=== PATIENT | female | born 1995 | race Caucasian/White ===

== ENCOUNTER 2024-02-17 14:46 | Outpatient (CLI) | payer BC, SELFPAY ==
--- OUTSIDE RECORDS SUMMARY | 2024-02-17 14:49 | XMS_ITS | Clinical Summary ---
Author Organization [facility] Address [place], [place] [address] Care Team Providers Care Valet Attendant Name Role Phone AshusaulAlejandra AMINA Primary Care Provider [phone] Allergies No known active allergies Medications Medication Sig Dispensed Refills Start Date End Date Status escitalopram oxalate (LEXAPRO) 20 mg tabletIndications:An xiety Take one tablet by mouth every day in the morning 90 Tablet 3 05/24/2023 Active clotrimazole (LOTRIMIN) 1 % creamIndications:Tin ea pedis of both feet Apply topically to affected area(s) two times daily. 45 g 10/18/2023 Active Apri tabletIndications:En counter for contraceptive management, unspecified type TAKE ONE TABLET BY MOUTH EVERY DAY 84 Tablet 1 11/01/2023 Active dextroamphetamine-am phetamine (Adderall XR) 30 mg Extended-Release capsuleIndications:A DD (attention deficit disorder) without hyperactivity Take 1 Capsule (30 mg) by mouth once daily. 30 Capsule 02/10/2024 03/11/2024 Active dextroamphetamine-am phetamine (Adderall XR) 30 mg Extended-Release capsuleIndications:A DD (attention deficit disorder) without hyperactivity Take 1 Capsule (30 mg) by mouth once daily. 30 Capsule 03/11/2024 Active dextroamphetamine-am phetamine (AdderalL) 10 mg tabletIndications:AD D (attention deficit disorder) without hyperactivity Take 1 Tablet (10 mg) by mouth 2 times daily at 7 AM and Noon. 60 Tablet 02/10/2024 03/11/2024 Active dextroamphetamine-am phetamine (AdderalL) 10 mg tabletIndications:AD D (attention deficit disorder) without hyperactivity Take 1 Tablet (10 mg) by mouth 2 times daily at 7 AM and Noon. 60 Tablet 03/11/2024 Active dextroamphetamine-am phetamine (Adderall XR) 30 mg Extended-Release capsuleIndications:A DD (attention deficit disorder) without hyperactivity Take 1 Capsule (30 mg) by mouth once daily. 30 Capsule 01/11/2024 02/10/2024 dextroamphetamine-am phetamine (AdderalL) 10 mg tabletIndications:AD D (attention deficit disorder) without hyperactivity Take 1 Tablet (10 mg) by mouth 2 times daily at 7 AM and Noon. 60 Tablet 01/11/2024 02/10/2024 Active Problems Problem Noted Date Diagnosed Date ADD (attention deficit disorder) without hyperac tivity 05/02/2023 Anxiety 09/23/2020 Attention deficit disorder 09/23/2020 Encounters Date Type Department Care Team Description 02/08/[address] [phone] Paula Elena MD Refill Request (Dextroamphetamine-am phetamine) 02/02/[address] [address] Paula Elena MD Refill Request (Dextroamphetamine-am phetamine, Dextroamphetamine-amp hetamine) 01/11/2024 10:55 AM CDT Telemedicine [address] [address] Paula Elena MD Telehealth (No vitals taken); Medication Management 01/04/[address] [address] Paula Elena MD Refill Request (Dextroamphetamine-am phetamine, Dextroamphetamine-amp hetamine) 12/09/[address] [address] Paula Elena MD Refill Request (Dextroamphetamine-am phetamine, Dextroamphetamine-amp hetamine) from Last 3 Months Immunizations Name Administration Dates Next Due AMB INFLUENZA, IIV4 (AGE=>6M OS) MDV (Flu Clinic Only) 08/24/2019 DTaP 02/20/2001, 7,05/30/1996,04/16,02/07/1996 HIB PRP-OMP (PedvaxHIB) 03/13/1997,05/30,04/16/1996,02/06 HIB PRP-T (ActHIB,Hiberix) 03/13/1997,,04/16/1996,02/06 HPV 9 (Gardasil 9) 05/11/2016,10/06/2015, 015 Hepatitis A (Adult) 02/03/2018,03/08/2017 Hepatitis B (Peds) 05/15/1997,02/07/1996, 996 Hepatitis B, Unspecified 05/15/1997,02/07/1996,0 1995 Human Papilloma Virus Vaccine 03/17/2015 Inactivated Polio Vaccine 02/20/2001,,05/30/1996,04/16,02/07/1996 Influenza, IIV4 07/27/2016 Influenza, IIV4 (=>6mos) MDV 07/27/2016,10/06/19 16 Influenza,LAIV4 Live Intrana keith (Flumist) 07/26/2014 MMR 02/20/2001,03/13/1997 Meningococcal Vaccine (Menactra) 07/26/2014 Tdap 02/03/2018,12/14/2007 Varicella Vaccine 12/30/2011,02/19/2000 Family History Relation Name Status Comments Father Alive Mother Alive Social History Tobacco Use Types Packs/Day Years Used Date Smoking Tobacco: Never Passive Smoke Exposure: Never Smokeless Tobacco: Never Tobacco Cessation:Counseling Given: Not Answered Alcohol Use Standard Drinks/Week Comments Yes 0 (1 standard drink = 0.6 oz pur e alcohol) occasional PHQ-2 Answer Date Recorded PHQ-2 TOTAL SCORE 1 05/24/2023 Social Connections Answer Date Recorded Frequency of Communication with Friends and Fami ly Not on file 09/09/2021 Financial Resource Strain Answer Date R ecorded Difficulty of Paying Living Expenses Not on file 09/09/2021 Difficulty of Paying Living Expenses Not on file 09/09/2021 Sex and Gender Information Value Date Recorded Sex Assigned at Not on file Gender Identity Not on file Sexual Orientation Not on file Obstetrics History Last Filed Vital Signs Vital Sign Reading Time Taken Comments Blood Pressure 104/74 11/03/2023 5:03 PM CONTRACTING SPECIALIST Pulse 99 11/03/2023 6:17 PM CONTRACTING SPECIALIST Temperature 36.7 ??C (98 ??F) 11/03/2023 5:03 PM CONTRACTING SPECIALIST Respiratory Rate 16 11/03/2023 5:03 PM CONTRACTING SPECIALIST Oxygen Saturation 100% 11/03/2023 6:17 PM CONTRACTING SPECIALIST Inhaled Oxygen Concentration - - Weight 70.3 kg (155 lb) 11/03/2023 5:03 PM CONTRACTING SPECIALIST Height 165.1 cm (5' 5) 11/03/2023 5:03 PM CONTRACTING SPECIALIST Body Mass Index 25.79 11/03/2023 5:03 PM CONTRACTING SPECIALIST Plan of Treatment Health Maintenance Due Date Last Done Comments HIV for age 15-65 11/27/2010 Hepatitis C screening for age 18-79 11/27/2013 Pap test for age 21-65 11/27/2016 COVID-19 vaccine series ( season) 2023 Influenza for age 9-49 05/20/2024 9, 07/27/2016, 07/27/2016, Additional history exists Depression screening for age 12+ 05/24/2024 05/24/2023, 05/24/2023, 01/05/2023, Additional history exists BMI (ht and wt on same day) for age 18+ 10/18/2024 10/18/2023, 06/13/2019, 01/22/2019, Additional history exists Tetanus booster 02/04/2028 02/03/2018, 12/14/2007 Tdap Completed 02/03/2018, 12/14/2007 Pneumococcal series for age 6-64 Aged Out No longer eligible based on patient's age to complete this topic Care Teams Valet Attendant Relationship Specialty Start Date End Date Alejandra Sy NP [address] [place] [id number] PCP - General Nurse Practitioner - Family 09/23/20
--- NOTE | 2024-02-17 15:00 | CRLHL7_ITS ---
For Patients: As a result of the Cures Act, medical imaging exams and procedure reports are released immediately into your electronic medical record. You may view this report before your referring provider. If you have questions, please contact your health care provider. HISTORY: Dating and viability COMPARISON: None available of this gestation. TECHNIQUE: Transvaginal ultrasound examination of the early was performed. FINDINGS: A single intrauterine gestational sac is seen with a pole. The crown-rump length measurement of 3.5 cm gives an estimated gestational age of 10 weeks 3 days with an estimated date of delivery of 09/11/2024. This correlates well with the LMP of 12/09/2023 which gives a clinical age of 10 weeks 0 days. Regular cardiac activity is seen at 159 BPM. There is a small anechoic region adjacent to the gestational sac, probably in the placenta, without color Doppler flow. This is a cyst of uncertain etiology. There is no sign of free fluid in the pelvis. There is a cyst in the left ovary measuring 3.6 by 2.0 x 2.9 centimeters, probably a corpus luteum cyst of . The right ovary is not visualized. IMPRESSION: Single intrauterine gestation with estimated age of 10 weeks 3 days. Regular cardiac activity is seen. Dictated by David Hong MD @ 02/19/2024 4:12:20 PM (Electronically Signed)
== END 2024-02-17 14:47 | disposition home or self-care (01) ==
LOC: US 14:48
PROVIDERS: PCP Nurse Practitioner Family; Visit Provider Registered Nurse
DX: Z34.91 Encounter for supervision of normal pregnancy, unspecified, first trimester (principal); Z3A.10 10 weeks gestation of pregnancy
CPT/HCPCS: 76817; 86592; 86703; 86704; 86706; 86762; 86787; 86803; 86850; 86900; 86901; 87086; 87340; 87491; 87591

== ENCOUNTER 2024-04-27 12:13 | Outpatient (CLI) | payer BC, SELFPAY ==
--- NOTE | 2024-04-27 12:15 | CRLHL7_ITS ---
For Patients: As a result of the Century Cures Act, medical imaging exams and procedure reports are released immediately into your electronic medical record. You may view this report before your referring provider. If you have questions, please contact your health care provider. INDICATION: Evaluate anatomy. COMPARISON: 02/17/2024 TECHNIQUE: Real time fay scale imaging of the fetus was performed as well as color Doppler analysis of the umbilical vessels. FINDINGS: Sonographic imaging demonstrates a single living intrauterine gestation. Fetus demonstrates a regular cardiac rate of 149 beats per minute. Fetus has a vertex position. The placenta lies right anterior without evidence of placenta previa. Adjuvant left placenta located 3.4 cm from the internal cervical os. Amniotic fluid volume appears normal. Single deepest vertical pocket: 5.4 cm. The cervix is closed and measures 3.9 cm in length. The composite ultrasound gestational age is calculated at 20 weeks 5 days with an estimated sonographic due date of 09/09/2024. The estimated weight is 387 grams which lies at the 91st %. The following biometric measurements were obtained: Biparietal diameter: 5.0 cm/21 weeks 0 days 87th% Head circumference: 18.4 cm/20 weeks 5 days 76th% Abdominal circumference: 16.5 cm/21 weeks 4 days 88th% Femur length: 3.3 cm/20 weeks 2 days 51st% The HC/AC ratio measures: 1.12 range (1.06-1.25) On anatomic survey, there is a normal appearance of the cerebral ventricles, cavum septi pellucidi, cisterna magna and cerebellum. The nose, lips, and facial profile appear normal. The cervical, thoracic and lumbar spine are well visualized and appear normal. There is a normal four-chamber heart view and the left and right ventricular outflow tracts appear normal. The diaphragm and stomach appear normal. The kidneys and bladder also appear normal. There is a normal three-vessel cord and cord insertion site. The four extremities appear normal. IMPRESSION: Normal OB ultrasound exam with concordance of clinical and sonographic dating. No intrinsic abnormalities noted on anatomic survey. Dictated by Juanito Camargo MD @ 04/30/2024 8:43:19 AM (Electronically Signed)
--- OUTSIDE RECORDS SUMMARY | 2024-04-27 12:15 | XMS_ITS | Clinical Summary ---
Author Organization [facility] Address [place], [place] [address] Care Team Providers Care Final Inspector Shuttle Name Role Phone KerrieLebronAlejandra AMINA Primary Care Provider Allergies No known active allergies Medications Medication Sig Dispensed Refills Start Date End Date Status escitalopram oxalate (LEXAPRO) 20 mg tabletIndications:A nxiety Take one tablet by mouth every day in the morning 90 Tablet 3 05/24/2023 Active clotrimazole (LOTRIMIN) 1 % creamIndications:Ti michelle pedis of both feet Apply topically to affected area(s) two times daily. 45 g 10/18/2023 Active Apri tabletIndications:E ncounter for contraceptive management, unspecified type TAKE ONE TABLET BY MOUTH EVERY DAY 84 Tablet 1 11/01/2023 Active dextroamphetamine-a mphetamine (Adderall XR) 25 mg Extended-Release capsuleIndications: ADD (attention deficit disorder) without hyperactivity Take 1 Capsule (25 mg) by mouth once daily. Okay to refill 04/03 as patient is going out of town 30 Capsule 04/03/2024 Active dextroamphetamine-a mphetamine (AdderalL) 10 mg tabletIndications:A DD (attention deficit disorder) without hyperactivity Take 1 Tablet (10 mg) by mouth 2 times daily at 7 AM and Noon. 60 Tablet 04/20/2024 Active dextroamphetamine-a mphetamine (Adderall XR) 25 mg Extended-Release capsuleIndications: ADD (attention deficit disorder) without hyperactivity Take 1 Capsule (25 mg) by mouth once daily. 30 Capsule 04/05/2024 4 Discontinue d(*Medicati on adjustment) dextroamphetamine-a mphetamine (AdderalL) 10 mg tabletIndications:A DD (attention deficit disorder) without hyperactivity Take 1 Tablet (10 mg) by mouth once daily. 30 Tablet 04/05/2024 4 Discontinue d(*Medicati on adjustment) dextroamphetamine-a mphetamine (AdderalL) 10 mg tabletIndications:A DD (attention deficit disorder) without hyperactivity Take 1 Tablet (10 mg) by mouth once daily. Okay to refill 04/03 as patient will be out of town 30 Tablet 04/03/2024 4 Discontinue d(*Medicati on adjustment) Active Problems Problem Noted Date Diagnosed Date ADD (attention deficit disorder) without hyperac tivity 05/02/2023 Anxiety 09/23/2020 Attention deficit disorder 09/23/2020 Estimated Date of Delivery Comme nts Yes 09/14/2024 Encounters Date Type Department Care Team Description 03/29/[address] [phone] Paula Elena MD Refill Request (Dextroamphetamine-a mphetamine, Dextroamphetamine-am phetamine) 03/19/2024 8:00 AM CDT Telemedicine [address] [phone] Paula Elena MD Telehealth (No vitals taken); Medication Management 03/03/[address] [phone] Paula Elena MD Refill Request (Dextroamphetamine-a mphetamine, Dextroamphetamine-am phetamine) 02/20/2024 Lab Requisition [facility] [phone] Angella King NP 02/17/2024 Orders Only [facility] Scanner 1 scan: (1-Ord) [facility], OB TRANSVAGINAL, 02/17/2024 02/08/[address] [place] [phone] Paula Elena MD Refill Request (Dextroamphetamine-a mphetamine) 02/02/[address] [place] [address] Paula Elena MD Refill Request (Dextroamphetamine-a mphetamine, Dextroamphetamine-am phetamine) from Last 3 Months Immunizations Name Administration [...] Paying Living Expenses Not on file 09/09/2021 Estimated Date of Delivery Comme nts Yes 09/14/2024 Sex and Gender Information Value Date Recorded Sex Assigned at Not on file Gender Identity Not on file Sexual Orientation Not on file Obstetrics History Para Term AB IAB SAB Ectopic Multiple Livin g Live Births 1 Date Outcome GA Total Labor Labor/2nd/3rd Weight Sex Type Anes PTL Maryann A1 A5 Name Clin Current Last Filed Vital Signs Vital Sign Reading Time Taken Comments Blood Pressure 104/74 11/03/2023 5:03 PM DIRECTOR ELECTRONICS Pulse 99 11/03/2023 6:17 PM DIRECTOR ELECTRONICS Temperature 36.7 ??C (98 ??F) 11/03/2023 5:03 PM DIRECTOR ELECTRONICS Respiratory Rate 16 11/03/2023 5:03 PM DIRECTOR ELECTRONICS Oxygen Saturation 100% 11/03/2023 6:17 PM DIRECTOR ELECTRONICS Inhaled Oxygen Concentration - - Weight 70.3 kg (155 lb) 11/03/2023 5:03 PM DIRECTOR ELECTRONICS Height 165.1 cm (5' 5) 11/03/2023 5:03 PM DIRECTOR ELECTRONICS Body Mass Index 25.79 11/03/2023 5:03 PM DIRECTOR ELECTRONICS Plan of Treatment Upcoming Encounters Date Type Department Care Team (Late st Contact Info) Description 05/04/2024 8:25 AM CDT Telemedicine [facility] [address] [place] [address] Paula Elena MD [address] [place] [address] Health Maintenance Due Date Last Done Comments HIV for age 15-65 11/27/2010 Hepatitis C screening for age 18-79 11/27/2013 COVID-19 vaccine series (2022-24 season) 2023 Influenza for age 9-49 05/20/2024 9, 07/27/2016, 07/27/2016, Additional history exists Depression screening for age 12+ 05/24/2024 05/24/2023, 05/24/2023, 01/05/2023, Additional history exists BMI (ht and wt on same day) for age 18+ 10/18/2024 10/18/2023, 06/13/2019, 01/22/2019, Additional history exists Pap test for age 21-65 02/16/2027 02/17/2024, 2023 Tetanus booster 02/04/2028 02/03/2018, 12/14/2007 Tdap Completed 02/03/2018, 12/14/2007 Pneumococcal series for age 6-64 Aged Out No longer eligible based on patient's age to complete this topic Procedures Procedure Name Priority Date/Time Associated Diagnosis Comments LAB TRACKING EVENT Routine 02/17/2024 4: 30 PM CDT FUR MIXER THIN PREP PAP SCREEN IMAGED Routine 02/17/2024 4:30 PM CDT HPV THIN PREP Routine 02/17/2024 4:30 PM CDT SCAN-ULTRASOUND REPORT 02/17/2024 12:00 AM CDT from Last 3 Months Results * LAB TRACKING EVENT (02/17/2024 4:30 PM CDT) Other (Other) Client Collect / Unknown 02/17/2024 4:30 PM CDT 02/20/2024 3:39 PM CDT Angella King NP LAB BILL ONLY [facility] [address] [place] [address], [place] * FUR MIXER THIN PREP PAP SCREEN IMAGED (02/17/2024 4:30 PM CDT) Case Report Gynecologic Cytology Report ? Case: [id number] ? Authorizing Provider: ??Angella King, SALES PROFESSIONAL BILINGUAL ?? Collected: ? 02/17/2024 1630 ? Ordering Location: ? [facility] ?Received: ?02/21/2024 0900 ? First Screen: ?Susan Ross ? Specimen: ?FUR MIXER ThinPrep Vial Screening, Cervical ? 02/29/2024 9:21 AM [facility] INTERPRETATION/ RESULT NEGATIVE FOR INTRAEPITHELIAL LESION OR MALIGNANCY (NIL) (none) 02/29/2024 9:21 AM [facility] IMEN ADEQUACY Satisfactory for evaluation No endocervical component seen in a patient 02/29/2024 9:21 AM CDT [facility] [employer] [facility]-C ENTRAL LABORATORY HPV REQUEST HPV and PAP 02/29/2024 9:21 AM [facility] Date of LMP 12/09/2023 02/29/2024 [facility] [employer] [facility]AL [facility] Last Pap Result First Pap/Unknown 9:21 AM CDT [facility] Abnormal Pap or [place] Bx in last 5 years No 02/29/2024 9:21 AM CDT [facility] Menstrual Status 02/29/2024 9:21 AM CDT [facility] [place] Bx Done Today No 02/29/2024 9:21 AM CDT [facility] Additional Information 02/29/2024 9:21 AM CDT [facility] Comment: Interpreted at [facility] - [address], [place] [address] Automated Review Successful 02/29/2024 9:[address] [facility] Comment:Specimen processed s uccessfully by automated fur sewer device, ThinPrep Imaging System, [employer] ANCILLARY TESTING FUR MIXER HPV Ordered, Please see separate report 02/29/2024 9:[address] [facility] Note The pap test is a screening technique, not a diagnostic procedure. It is used primarily to screen for squamous cancers and precursor lesions. Published studies have shown that it is subject to both false negative and false positive results. The pap test should not be used as the sole means to diagnose or exclude pre-malignant and malignant lesions. 02/29/2024 9:21 AM CDT [facility] Other (Cervical) 02/17/2024 4:30 PM CDT 02/21/2024 9:00 AM CDT Angella King NP PATHOLOGY/CYTOLOG Y [facility] [address] [place] [address], * HPV HIGH RISK (02/17/2024 4:30 PM CDT) TYPE 16 Negative Negative 02/23/2024 2:18 PM CDT [facility] LABORAT[facility] TYPE 18 Negative Negative 02/23/2024 2:18 PM CDT [facility] TRAL LABORATORY OTHER HIGH RISK TYPES Negative Negative 02/23/2024 2:18 PM CDT [facility] Other (Cervical) 02/17/2024 4:30 PM CDT 02/21/2024 9:00 AM CDT Narrative [facility] - 02/23/2024 2:18 PM CDT HPV types 16, 18, 31, 33, 35, 39, 45, 51, 52, 56, 58, 59, 66 and 68 DNA were undetectable or below the pre-set threshold. Methodology: Jennifer Yadira 4800 HPV Test Angella King NP MICROBIOLOGY [facility] [address] [place] [address], * SCAN-ULTRASOUND REPORT (02/17/2024 12:00 AM CDT) Anatomical Region Laterality Modality Other Scanner OTHER from Last 3 Months Care Teams Final Inspector Shuttle Relationship Specialty Start Date End Date Alejandra Sy NP [address] [place] [id number] PCP - General Nurse Practitioner - Family 09/23/20
== END 2024-04-27 12:14 | disposition home or self-care (01) ==
LOC: US 12:13
PROVIDERS: PCP Nurse Practitioner Family; Visit Provider Obstetrics & Gynecology
DX: Z34.92 Encounter for supervision of normal pregnancy, unspecified, second trimester (principal); Z3A.20 20 weeks gestation of pregnancy
CPT/HCPCS: 76805

== ENCOUNTER 2024-06-27 13:29 | Outpatient (CLI) | payer BC, SELFPAY ==
--- OUTSIDE RECORDS SUMMARY | 2024-06-29 08:41 | XMS_ITS | Clinical Summary ---
Author Organization [employer] [facility] Address [place], [place] [address] Care Team Providers Care Team Otr Truck Driver Name Role Phone Paula Elena MD Primary Care Provi diony Allergies No known active allergies Medications Medication Sig Dispensed Refills Start Date End Date Status clotrimazole (LOTRIMIN) 1 % creamIndications:T inea pedis of both feet Apply topically to affected area(s) two times daily. 45 g 4 Active Apri tabletIndications: Encounter for contraceptive management, unspecified type TAKE ONE TABLET BY MOUTH EVERY DAY 84 Tablet 1 4 Active dextroamphetamine- amphetamine (Adderall XR) 25 mg Extended-Release capsuleIndications :ADD (attention deficit disorder) without hyperactivity Take 1 Capsule (25 mg) by mouth once daily. Okay to refill 04/03 as patient is going out of town 30 Capsule 4 Active dextroamphetamine- amphetamine (Adderall XR) 25 mg Extended-Release capsuleIndications :ADD (attention deficit disorder) without hyperactivity Take 1 Capsule (25 mg) by mouth once daily. 30 Capsule 4 Active Prvugbir-Fx-Szi-Fe -FA tab tablet Take 1 Tablet by mouth once daily. Active dextroamphetamine- amphetamine (ADDERALL) 10 mg tabletIndications: ADD (attention deficit disorder) without hyperactivity TAKE ONE TABLET BY MOUTH TWICE A DAY AT 7A.M. AND NOON 60 Tablet 4 Active dextroamphetamine- amphetamine (AdderalL) 10 mg tabletIndications: ADD (attention deficit disorder) without hyperactivity Take 1 Tablet (10 mg) by mouth 2 times daily at 7 AM and Noon. 60 Tablet 4 07/14/20 24 Active dextroamphetamine- amphetamine (AdderalL) 10 mg tabletIndications: ADD (attention deficit disorder) without hyperactivity Take 1 Tablet (10 mg) by mouth 2 times daily at 7 AM and Noon. 60 Tablet 4 08/13/20 24 Active dextroamphetamine- amphetamine (AdderalL) 10 mg tabletIndications: ADD (attention deficit disorder) without hyperactivity Take 1 Tablet (10 mg) by mouth 2 times daily at 7 AM and Noon. 30 Tablet 4 Active escitalopram oxalate (LEXAPRO) 20 mg tabletIndications: Anxiety TAKE ONE TABLET BY MOUTH EVERY DAY IN MORNING 90 Tablet 3 4 Active dextroamphetamine- amphetamine (Adderall XR) 25 mg Extended-Release capsuleIndications :ADD (attention deficit disorder) without hyperactivity Take 1 Capsule (25 mg) by mouth once daily. 30 Capsule 4 Active escitalopram oxalate (LEXAPRO) 20 mg tabletIndications: Anxiety Take one tablet by mouth every day in the morning 90 Tablet 3 3 06/04/20 24 Discontinued dextroamphetamine- amphetamine (Adderall XR) 25 mg Extended-Release capsuleIndications :ADD (attention deficit disorder) without hyperactivity Take 1 Capsule (25 mg) by mouth once daily. 30 Capsule 4 06/02/20 24 dextroamphetamine- amphetamine (Adderall XR) 25 mg Extended-Release capsuleIndications :ADD (attention deficit disorder) without hyperactivity Take 1 Capsule (25 mg) by mouth once daily. 30 Capsule 4 06/25/20 24 Discontinued(*Me dication adjustment) escitalopram oxalate (LEXAPRO) 20 mg tabletIndications: Anxiety TAKE ONE TABLET BY MOUTH EVERY DAY IN MORNING 90 Tablet 1 4 06/25/20 24 Discontinued(Reo rder (E-cancel not sent)) escitalopram oxalate (LEXAPRO) 20 mg tabletIndications: Anxiety TAKE ONE TABLET BY MOUTH EVERY DAY IN MORNING 90 Tablet 1 4 06/25/20 24 Discontinued(Reo rder (E-cancel not sent)) Active Problems Problem Noted Date Diagnosed Date ADD (attention deficit disorder) without hyperac tivity 05/02/2023 Anxiety 09/23/2020 Attention deficit disorder 09/23/2020 Estimated Date of Delivery Comme nts Yes 09/14/2024 Encounters Date Type Department Care Team Description 06/25/[address] [address] Paula Elena MD Refill Request 06/19/[address] [address] Paula Elena MD Refill Request (Escitalopram Oxalate) 06/14/[address] [address] Paula Elena MD Refill Request (ARMEN) 06/10/[address] [address] Paula Elena MD Refill Request (Dextroamphetamine-am phetamine) 05/30/[address] [address] Alejandra Sy NP Refill Request (Escitalopram Oxalate) 05/28/[address] [address] Paula Elena MD Refill Request (Dextroamphetamine-am phetamine) 05/20/[address] [address] Paula Elena MD Refill Request (Dextroamphetamine-am phetamine) 05/14/[address] [address] Paula Elena MD Refill Request (Dextroamphetamine-am phetamine) 05/04/2024 8:25 AM CDT Telemedicine [address] [place] [address] Paula Elena MD Telehealth (No vitals taken); Medication Management 04/30/[address] [place] [address] Paula Elena MD Refill Request (Dextroamphetamine-am phetamine) 04/27/2024 Orders Only [facility] Scanner 1 scan: (1-Ord) [facility], OB >14 WEEKS FETUS, 04/27/2024 03/29/[address] [place] [address] Paula Elena MD Refill Request (Dextroamphetamine-am phetamine, [...] Not Answered Alcohol Use Standard Drinks/Week Comments Not Currently 0 (1 standard drink = 0.6 oz [...] Comments Blood Pressure 104/74 11/03/2023 5:03 PM CLAY TEMPERER Pulse 99 11/03/2023 6:17 PM CLAY TEMPERER Temperature 36.7 ??C (98 ??F) 11/03/2023 5:03 PM CLAY TEMPERER Respiratory Rate 16 11/03/2023 5:03 PM CLAY TEMPERER Oxygen Saturation 100% 11/03/2023 6:17 PM CLAY TEMPERER Inhaled Oxygen Concentration - - Weight 70.3 kg (155 lb) 11/03/2023 5:03 PM CLAY TEMPERER Height 165.1 cm (5' 5) 11/03/2023 5:03 PM CLAY TEMPERER Body Mass Index 25.79 11/03/2023 5:03 PM CLAY TEMPERER Plan of Treatment Health Maintenance Due Date Last Done Comments HIV for age 15-65 11/27/2010 Hepatitis C screening for age 18-79 11/27/2013 COVID-19 vaccine series ( season) 2024 Influenza for age 9-49 05/20/2024 9, 07/27/2016, 07/27/2016, Additional history exists Depression screening for age 12+ 05/24/2024 05/24/2023, 05/24/2023, 01/05/2023, Additional history exists RSV vaccine for adults or (1 - Risk 1-dose series) 07/20/2024 BMI (ht and wt on same day) for age 18+ 10/18/2024 10/18/2023, 06/13/2019, 01/22/2019, Additional history exists Pap test for age 21-65 02/16/2027 02/17/2024, 2023 Tetanus booster 02/04/2028 02/03/2018, 12/14/2007 Tdap Completed 02/03/2018, 12/14/2007 Pneumococcal series for age 6-64 Aged Out No longer eligible based on patient's age to complete this topic Procedures Procedure Name Priority Date/Time Associated Diagnosis Comments SCAN-ULTRASOUND REPORT 04/27/2024 12:00 AM CDT HPV HIGH RISK Routine 02/17/2024 4:30 PM CDT from Last 3 Months or Most Recently Relevant to Health Maintenance Results * SCAN-ULTRASOUND REPORT (04/27/2024 12:00 AM CDT) Anatomical Region Laterality Modality Other Scanner OTHER * HPV HIGH RISK (02/17/2024 4:30 PM CDT) TYPE 16 Negative Negative 02/23/2024 2:18 PM CDT [facility] TYPE 18 Negative Negative 02/23/2024 2:18 PM CDT [facility] OTHER HIGH RISK TYPES Negative Negative 02/23/2024 2:18 PM CDT [facility] Other (Cervical) 02/17/2024 4:30 PM CDT 02/21/2024 9:00 AM CDT Narrative [facility] - 02/23/2024 2:18 PM CDT HPV types 16, 18, 31, 33, 35, 39, 45, 51, 52, 56, 58, 59, 66 and 68 DNA were undetectable or below the pre-set threshold. Methodology: Jennifer Yadira 4800 HPV Test Angella King BALER OPERATOR [facility]CROBIOLOGY [facility] [address] [place] [address], from Last 3 Months or Most Recently Relevant to Health Maintenance Care Teams Team Otr Truck Driver Relationship Specialty Start Date End Date Paula Elena MD [address] [place] [address] PCP - General Family Practice 06/21/24
== END 2024-06-27 13:30 | disposition home or self-care (01) ==
LOC: NFLDREF 06-29 08:39
PROVIDERS: PCP Nurse Practitioner Family; Referring Provider Nurse Practitioner Family; Visit Provider Obstetrics & Gynecology
DX: Z34.03 Encounter for supervision of normal first pregnancy, third trimester (principal)
CPT/HCPCS: 86592

== ENCOUNTER 2024-07-30 10:35 | Outpatient (CLI) | payer BC, SELFPAY ==
--- OUTSIDE RECORDS SUMMARY | 2024-08-02 07:16 | XMS_ITS | Clinical Summary ---
Author Organization [employer] [facility] Address [place], [place] [address] Care Team Providers Care Certified Coding Specialist Name Role Phone Paula Elena MD Primary Care Provi diony Allergies No known active allergies Medications Medication Sig Dispensed Refills Start Date End Date Status clotrimazole (LOTRIMIN) 1 % creamIndications:Tin ea pedis of both feet Apply topically to affected area(s) two times daily. 45 g 10/18/2023 Active Apri tabletIndications:En counter for contraceptive management, unspecified type TAKE ONE TABLET BY MOUTH EVERY DAY 84 Tablet 1 11/01/2023 Active dextroamphetamine-am phetamine (Adderall XR) 25 mg Extended-Release capsuleIndications:A DD (attention deficit disorder) without hyperactivity Take 1 Capsule (25 mg) by mouth once daily. Okay to refill 04/03 as patient is going out of town 30 Capsule 04/03/2024 Active dextroamphetamine-am phetamine (Adderall XR) 25 mg Extended-Release capsuleIndications:A DD (attention deficit disorder) without hyperactivity Take 1 Capsule (25 mg) by mouth once daily. 30 Capsule 07/02/2024 Active Wsfczrmd-Ae-Mzw-Fe-F A tab tablet Take 1 Tablet by mouth once daily. Active dextroamphetamine-am phetamine (ADDERALL) 10 mg tabletIndications:AD D (attention deficit disorder) without hyperactivity TAKE ONE TABLET BY MOUTH TWICE A DAY AT 7A.M. AND NOON 60 Tablet 05/15/2024 Active dextroamphetamine-am phetamine (AdderalL) 10 mg tabletIndications:AD D (attention deficit disorder) without hyperactivity Take 1 Tablet (10 mg) by mouth 2 times daily at 7 AM and Noon. 60 Tablet 07/14/2024 08/13/2024 Active dextroamphetamine-am phetamine (AdderalL) 10 mg tabletIndications:AD D (attention deficit disorder) without hyperactivity Take 1 Tablet (10 mg) by mouth 2 times daily at 7 AM and Noon. 30 Tablet 08/13/2024 Active escitalopram oxalate (LEXAPRO) 20 mg tabletIndications:An xiety TAKE ONE TABLET BY MOUTH EVERY DAY IN MORNING 90 Tablet 3 06/25/2024 Active dextroamphetamine-am phetamine (Adderall XR) 25 mg Extended-Release capsuleIndications:A DD (attention deficit disorder) without hyperactivity Take 1 Capsule (25 mg) by mouth once daily. 30 Capsule 06/25/2024 Active dextroamphetamine-am phetamine (Adderall XR) 25 mg Extended-Release capsuleIndications:A DD (attention deficit disorder) without hyperactivity Take 1 Capsule (25 mg) by mouth once daily. 30 Capsule 07/23/2024 08/22/2024 Active dextroamphetamine-am phetamine (Adderall XR) 25 mg Extended-Release capsuleIndications:A DD (attention deficit disorder) without hyperactivity Take 1 Capsule (25 mg) by mouth once daily. 30 Capsule 08/22/2024 09/21/2024 Active dextroamphetamine-am phetamine (Adderall XR) 25 mg Extended-Release capsuleIndications:A DD (attention deficit disorder) without hyperactivity Take 1 Capsule (25 mg) by mouth once daily. 30 Capsule 09/21/2024 Active dextroamphetamine-am phetamine (AdderalL) 10 mg tabletIndications:AD D (attention deficit disorder) without hyperactivity Take 1 Tablet (10 mg) by mouth 2 times daily at 7 AM and Noon. 60 Tablet 06/14/2024 07/14/2024 Active Problems Problem Noted Date Diagnosed Date ADD (attention deficit disorder) without hyperac tivity 05/02/2023 Anxiety 09/23/2020 Attention deficit disorder 09/23/2020 Estimated Date of Delivery Comme nts Yes 09/14/2024 Encounters Date Type Department Care Team Description 07/19/[address] [place] [address] Paula Elena MD Refill Request (Dextroamphetamine-am phetamine) 07/04/[address] [place] [address] Paula Elena MD Refill Request (Dextroamphetamine-am phetamine) 06/25/[address] [place] [address] Paula Elena MD Refill Request 06/19/[address] [place] [address] Paula Elena MD Refill Request (Escitalopram Oxalate) 06/14/[address] [place] [address] Paula Elena MD Refill Request (ARMEN) 06/10/[address] [place] [address] Paula Elena MD Refill Request (Dextroamphetamine-am phetamine) 05/30/[address] [place] [address] Alejandra Sy NP Refill Request (Escitalopram Oxalate) 05/28/[address] [place] [address] Paula Elena MD Refill Request (Dextroamphetamine-am phetamine) 05/20/[address] [place] [address] Paula Elena MD Refill Request (Dextroamphetamine-am phetamine) 05/14/[address] [place] [address] Paula Elena MD Refill Request (Dextroamphetamine-am phetamine) 05/04/2024 8:25 AM CDT Telemedicine [address] [place] [address] Paula Elena MD Telehealth (No vitals taken); Medication Management from Last 3 Months Immunizations Name Administration [...] Comments Blood Pressure 104/74 11/03/2023 5:03 PM PREPRESS SUPERVISOR Pulse 99 11/03/2023 6:17 PM PREPRESS SUPERVISOR Temperature 36.7 ??C (98 ??F) 11/03/2023 5:03 PM PREPRESS SUPERVISOR Respiratory Rate 16 11/03/2023 5:03 PM PREPRESS SUPERVISOR Oxygen Saturation 100% 11/03/2023 6:17 PM PREPRESS SUPERVISOR Inhaled Oxygen Concentration - - Weight 70.3 kg (155 lb) 11/03/2023 5:03 PM PREPRESS SUPERVISOR Height 165.1 cm (5' 5) 11/03/2023 5:03 PM PREPRESS SUPERVISOR Body Mass Index 25.79 11/03/2023 5:03 PM PREPRESS SUPERVISOR Plan of Treatment Health Maintenance Due Date [...] Procedure Name Priority Date/Time Associated Diagnosis Comments HPV HIGH RISK Routine 02/17/2024 4:30 PM CDT from Last 3 Months or Most Recently Relevant to Health Maintenance Results * HPV HIGH RISK (02/17/2024 4:30 PM CDT) TYPE 16 Negative Negative 02/23/2024 2:18 PM CDT [facility] TYPE 18 Negative Negative 02/23/2024 2:18 PM CDT [facility] OTHER HIGH RISK TYPES Negative Negative 02/23/2024 2:18 PM CDT [facility] Other (Cervical) 02/17/2024 4:30 PM CDT 02/21/2024 9:00 AM CDT Narrative [facility] - 02/23/2024 2:18 PM CDT HPV types 16, 18, 31, 33, 35, 39, 45, 51, 52, 56, 58, 59, 66 and 68 DNA were undetectable or below the pre-set threshold. Methodology: [employer] Yadira 4800 HPV Test Angella King NP [facility]CRO[facility]OLOGY [facility] [address] [place] [address], from Last 3 Months or Most Recently Relevant to Health Maintenance Care Teams Certified Coding Specialist Relationship Specialty Start Date End Date Paula Elena MD [address] [place] [address] PCP - General Family Practice 06/21/24
== END 2024-07-30 10:36 | disposition home or self-care (01) ==
LOC: NFLDREF 08-02 07:14
PROVIDERS: PCP Nurse Practitioner Family; Referring Provider Nurse Practitioner Family; Visit Provider Obstetrics & Gynecology
DX: O99.013 Anemia complicating pregnancy, third trimester (principal); Z3A.33 33 weeks gestation of pregnancy
CPT/HCPCS: 82728

== ENCOUNTER 2024-08-07 11:23 | Outpatient (RCR) | payer BC, SELFPAY ==
--- NOTE | 2024-07-31 11:18 | PC.NURSE ---
Diagnosis: Iron Deficiency Anemia in
--- NOTE | 2024-07-31 11:44 | URNOTE ---
Request received for authorization for Iron Sucrose (Venofer) ([id number]). Prior authorization is not required per BS website.
[2024-08-07 11:39] VITALS: BP 121/83; PULSE 96; RESP 16; TEMP 36.6; O2SAT 96
[2024-08-07] MEDS: IRON SUCROSE COMPLEX 200 MG in 0.9 % SODIUM CHLORIDE 100 ml 300 MG IVPB (11:54)
[2024-08-07] MEDS: SODIUM CHLORIDE 0.9 % (FLUSH) 10 ML SYRINGE IVF (11:57)
[2024-08-07 12:23] VITALS: BP 134/83; PULSE 91; RESP 16; O2SAT 98
== END 2025-02-03 23:59 | disposition home or self-care (01) ==
LOC: CCIC 11:23
PROVIDERS: PCP Family Medicine; Visit Provider Clinical Nurse Specialist
DX: O99.013 Anemia complicating pregnancy, third trimester (principal); D50.9 Iron deficiency anemia, unspecified
CPT/HCPCS: 96365; J1756

== ENCOUNTER 2024-08-13 13:54 | Outpatient (CLI) | payer BC, SELFPAY ==
--- NOTE | 2024-08-13 14:00 | CRLHL7_ITS ---
For Patients: As a result of the Century Cures Act, medical imaging exams and procedure reports are released immediately into your electronic medical record. You may view this report before your referring provider. If you have questions, please contact your health care provider. INDICATION: Third trimester scan, evaluate growth. COMPARISON: April 27, 2024. February 17, 2024. TECHNIQUE: Real time fay scale imaging of the fetus was performed. FINDINGS: Sonographic imaging demonstrates a single living intrauterine gestation. Fetus demonstrates a regular cardiac rate of 138 beats per minute. Fetus has a vertex orientation and longitudinal lie with spine to the maternal left side. The placenta lies anteriorly without evidence of placenta previa. There is a placental Encinas measuring 2.4 x 2.4 x 1.8 cm. Amniotic fluid volume appears normal and there is a single deepest pocket measurement of 6.7. Biometric indices: Biparietal diameter 9.4 cm, 38 weeks 3 days, greater than the 97th percentile. Head circumference 33.9 cm, 39 weeks 0 days, 93rd percentile. Abdominal circumference 34.1 cm, 38 weeks 0 days, greater than the 97th percentile. Femur length 6.8 cm, 34 weeks 6 days, 27th percentile. The biometric indices all lie within normal range. Appropriate growth and maturation when compared to the 2 prior obstetrical ultrasounds. The composite ultrasound gestational age is calculated at 37 weeks 4 days. The estimated weight is 3198 which lies at the 93rd percentile. The HC/AC ratio measures 1.0 range (0.91-1.05). IMPRESSION: Single living intrauterine in vertex presentation with a Heart rate of 138 beats per minute, normal amniotic fluid, and a composite calculated ultrasound age of 37 weeks 4 days with a sonographic due date of August 30, 2024. Dictated by Stephane Bull MD @ 08/14/2024 10:32:13 AM (Electronically Signed)
--- OUTSIDE RECORDS SUMMARY | 2024-08-13 14:11 | XMS_ITS | Clinical Summary ---
Author Organization [facility] Address [place], [place] [address] Care Team Providers Care Railroad Firer/Fireman Name Role Phone Paula Elena MD Primary Care Provi diony Allergies No known active allergies Medications Medication Sig Dispensed Refills Start Date End Date Status clotrimazole (LOTRIMIN) 1 % creamIndications:Ti michelle pedis [...] town 30 Capsule 04/03/2024 Active dextroamphetamine-a mphetamine (Adderall XR) 25 mg Extended-Release capsuleIndications: ADD (attention deficit disorder) without hyperactivity Take 1 Capsule (25 mg) by mouth once daily. 30 Capsule 07/02/2024 Active Yohmmoba-Hg-Tyy-Fe- FA tab tablet Take 1 Tablet by mouth once daily. Active dextroamphetamine-a mphetamine (ADDERALL) 10 mg tabletIndications:A DD (attention deficit disorder) without hyperactivity TAKE ONE TABLET BY MOUTH TWICE A DAY AT 7A.M. AND NOON 60 Tablet 05/15/2024 Active dextroamphetamine-a mphetamine (AdderalL) 10 mg tabletIndications:A DD (attention deficit disorder) without hyperactivity Take 1 Tablet (10 mg) by mouth 2 times daily at 7 AM and Noon. 60 Tablet 07/14/2024 4 Active escitalopram oxalate (LEXAPRO) 20 mg tabletIndications:A nxiety TAKE ONE TABLET BY MOUTH EVERY DAY IN MORNING 90 Tablet 3 06/25/2024 Active dextroamphetamine-a mphetamine (Adderall XR) 25 mg Extended-Release capsuleIndications: ADD (attention deficit disorder) without hyperactivity Take 1 Capsule (25 mg) by mouth once daily. 30 Capsule 06/25/2024 Active dextroamphetamine-a mphetamine (Adderall XR) 25 mg Extended-Release capsuleIndications: ADD (attention deficit disorder) without hyperactivity Take 1 Capsule (25 mg) by mouth once daily. 30 Capsule 07/23/2024 4 Active dextroamphetamine-a mphetamine (Adderall XR) 25 mg Extended-Release capsuleIndications: ADD (attention deficit disorder) without hyperactivity Take 1 Capsule (25 mg) by mouth once daily. 30 Capsule 08/22/2024 5 Active dextroamphetamine-a mphetamine (Adderall XR) 25 mg Extended-Release capsuleIndications: ADD (attention deficit disorder) without hyperactivity Take 1 Capsule (25 mg) by mouth once daily. 30 Capsule 09/21/2024 Active dextroamphetamine-a mphetamine (AdderalL) 10 mg tabletIndications:A DD (attention deficit disorder) without hyperactivity Take 1 Tablet (10 mg) by mouth 2 times daily at 7 AM and Noon. 60 Tablet 08/22/2024 Active dextroamphetamine-a mphetamine (AdderalL) 10 mg tabletIndications:A DD (attention deficit disorder) without hyperactivity Take 1 Tablet (10 mg) by mouth 2 times daily at 7 AM and Noon. 60 Tablet 06/14/2024 4 dextroamphetamine-a mphetamine (AdderalL) 10 mg tabletIndications:A DD (attention deficit disorder) without hyperactivity Take 1 Tablet (10 mg) by mouth 2 times daily at 7 AM and Noon. 30 Tablet 08/13/2024 4 Discontinued (*Medication adjustment) dextroamphetamine-a mphetamine (AdderalL) 10 mg tabletIndications:A DD (attention deficit disorder) without hyperactivity Take 1 Tablet (10 mg) by mouth 2 times daily at 7 AM and Noon. 30 Tablet 08/13/2024 4 Discontinued (*Medication adjustment) dextroamphetamine-a mphetamine (AdderalL) 10 mg tabletIndications:A DD (attention deficit disorder) without hyperactivity Take 1 Tablet (10 mg) by mouth 2 times daily at 7 AM and Noon. 30 Tablet 08/06/2024 4 Discontinued (*Medication adjustment) Active Problems Problem Noted Date Diagnosed Date ADD (attention deficit disorder) without hyperac tivity 05/02/2023 Anxiety 09/23/2020 Attention deficit disorder 09/23/2020 Estimated Date of Delivery Comme nts Yes 09/14/2024 Encounters Date Type Department Care Team Description 08/08/[address] [address] Paula Elena MD Refill Request (Dextroamphetamine-amph etamine) 08/06/[address] [phone] Paula Elena MD Refill Request (Dextroamphetamine-amph etamine, Dextroamphetamine-amphe tamine) 07/19/[address] [phone] Paula Elena MD Refill Request (Dextroamphetamine-amph etamine) 07/04/[address] [phone] Paula Elena MD Refill Request (Dextroamphetamine-amph etamine) 06/25/[address] [address] Paula Elena MD Refill Request 06/19/[address] [place] [address] Paula Elena MD Refill Request (Escitalopram Oxalate) 06/14/[address] [place] [address] Paula Elena MD Refill Request (ARMEN) 06/10/[address] [place] [address] Paula Elena MD Refill Request (Dextroamphetamine-amph etamine) 05/30/[address] [place] [address] Alejandra Sy NP Refill Request (Escitalopram Oxalate) 05/28/[address] [place] [address] Paula Elena MD Refill Request (Dextroamphetamine-amph etamine) 05/20/[address] [place] [address] Paula Elena MD Refill Request (Dextroamphetamine-amph etamine) 05/14/[address] [place] [address] Paula Elena MD Refill Request (Dextroamphetamine-amph etamine) from Last 3 Months Immunizations Name Administration [...] Comments Blood Pressure 104/74 11/03/2023 5:03 PM CRESTER Pulse 99 11/03/2023 6:17 PM CRESTER Temperature 36.7 C (98 F) 11/03/2023 5:03 PM CRESTER Respiratory Rate 16 11/03/2023 5:03 PM CRESTER Oxygen Saturation 100% 11/03/2023 6:17 PM CRESTER Inhaled Oxygen Concentration - - Weight 70.3 kg (155 lb) 11/03/2023 5:03 PM CRESTER Height 165.1 cm (5' 5) 11/03/2023 5:03 PM CRESTER Body Mass Index 25.79 11/03/2023 5:03 PM CRESTER Plan of Treatment Health Maintenance Due Date [...] Negative 02/23/2024 2:18 PM CDT [facility] TYPE 18 Negative Negative 02/23/2024 2:18 PM CDT [facility] OTHER HIGH RISK TYPES Negative Negative 02/23/2024 2:18 PM CDT [facility] TRA [facility] Other (Cervical) 02/17/2024 4:30 PM CDT 02/21/2024 9:00 AM CDT Narrative [facility] - 02/23/2024 2:18 PM CDT HPV types 16, 18, 31, 33, 35, 39, 45, 51, 52, 56, 58, 59, 66 and 68 DNA were undetectable or below the pre-set threshold. Methodology: Jennifer Yadira 4800 HPV Test Angella King STERILISATION TECHNICIAN MICROBIOLOGY [facility] [address] [place] [id number], from Last 3 Months or Most Recently Relevant to Health Maintenance Care Teams Railroad Firer/Fireman Relationship Specialty Start Date End Date Paula Elena MD [address] [place] [id number] PCP - General Family Practice 06/21/24
== END 2024-08-13 13:55 | disposition home or self-care (01) ==
LOC: US 13:55
PROVIDERS: PCP Family Medicine; Visit Provider Obstetrics & Gynecology
DX: O36.63X0 Maternal care for excessive fetal growth, third trimester, not applicable or unspecified (principal); Z3A.37 37 weeks gestation of pregnancy
CPT/HCPCS: 76816

== ENCOUNTER 2024-08-20 13:18 | Outpatient (CLI) | payer BC, SELFPAY ==
[2024-08-20] VITALS (12 sets, daily range): BP systolic 123–146; BP diastolic 74–88; PULSE 83–98; RESP 16; TEMP 36.9; O2SAT 98
--- OUTSIDE RECORDS SUMMARY | 2024-08-20 13:21 | XMS_ITS | Clinical Summary ---
Author Organization [employer] [facility] [employer] [facility] Address [place], [place] [address] Care Team Providers Care Video System Repairer Name Role Phone Paula Elena MD Primary [...] mouth once daily. 30 Capsule 4 Active Hjwdrnfr-Cd-Bgi-Fe -FA tab tablet Take 1 Tablet by mouth once daily. Active dextroamphetamine- amphetamine (ADDERALL) 10 mg tabletIndications: ADD (attention deficit disorder) without hyperactivity TAKE ONE TABLET BY MOUTH TWICE A DAY AT 7A.M. AND NOON 60 Tablet 4 Active escitalopram oxalate (LEXAPRO) 20 mg tabletIndications: Anxiety TAKE ONE TABLET BY MOUTH EVERY DAY IN MORNING 90 Tablet 3 4 Active dextroamphetamine- amphetamine (Adderall XR) 25 mg Extended-Release capsuleIndications :ADD (attention deficit disorder) without hyperactivity Take 1 Capsule (25 mg) by mouth once daily. 30 Capsule 4 Active dextroamphetamine- amphetamine (Adderall XR) 25 mg Extended-Release capsuleIndications :ADD (attention deficit disorder) without hyperactivity Take 1 Capsule (25 mg) by mouth once daily. 30 Capsule 4 09/21/19 25 Active dextroamphetamine- amphetamine (Adderall XR) 25 mg Extended-Release capsuleIndications :ADD (attention deficit disorder) without hyperactivity Take 1 Capsule (25 mg) by mouth once daily. 30 Capsule 5 Active dextroamphetamine- amphetamine (AdderalL) 10 mg tabletIndications: ADD (attention deficit disorder) without hyperactivity Take 1 Tablet (10 mg) by mouth 2 times daily at 7 AM and Noon. 60 Tablet 4 Active dextroamphetamine- amphetamine (ADDERALL XR) 25 mg Extended-Release capsuleIndications :ADD (attention deficit disorder) without hyperactivity Take 1 Capsule (25 mg) by mouth once daily. 30 Capsule 4 Active dextroamphetamine- amphetamine (AdderalL) 10 mg tabletIndications: ADD (attention deficit disorder) without hyperactivity Take 1 Tablet (10 mg) by mouth 2 times daily at 7 AM and Noon. 60 Tablet 4 08/13/20 24 dextroamphetamine- amphetamine (AdderalL) 10 mg tabletIndications: ADD (attention deficit disorder) without hyperactivity Take 1 Tablet (10 mg) by mouth 2 times daily at 7 AM and Noon. 30 Tablet 4 08/06/20 24 Discontinued(*Me dication adjustment) dextroamphetamine- amphetamine (Adderall XR) 25 mg Extended-Release capsuleIndications :ADD (attention deficit disorder) without hyperactivity Take 1 Capsule (25 mg) by mouth once daily. 30 Capsule 4 08/14/20 24 Discontinued dextroamphetamine- amphetamine (AdderalL) 10 mg tabletIndications: ADD (attention deficit disorder) without hyperactivity Take 1 Tablet (10 mg) by mouth 2 times daily at 7 AM and Noon. 30 Tablet 4 08/06/20 24 Discontinued(*Me dication adjustment) dextroamphetamine- amphetamine (AdderalL) 10 mg tabletIndications: ADD (attention deficit disorder) without hyperactivity Take 1 Tablet (10 mg) by mouth 2 times daily at 7 AM and Noon. 30 Tablet 4 08/07/20 24 Discontinued(*Me dication adjustment) Active Problems Problem Noted Date Diagnosed Date ADD (attention deficit disorder) without hyperac tivity 05/02/2023 Anxiety 09/23/2020 Attention deficit disorder 09/23/2020 Estimated Date of Delivery Comme nts Yes 09/14/2024 Encounters Date Type Department Care Team Description 08/20/[address] [phone] Paula Elena MD Refill Request (Dextroamphetamine-amph etamine) 08/15/[address] [address] Paula Elena MD Refill Request (Dextroamphetamine-amph etamine) 08/08/[address] [address] Paula Elena MD Refill Request (Dextroamphetamine-amph etamine) 08/06/[address] [phone] Paula Elena MD Refill Request (Dextroamphetamine-amph etamine, Dextroamphetamine-amphe tamine) 07/19/[address] [phone] Paula Elena MD Refill Request (Dextroamphetamine-amph etamine) 07/04/[address] [phone] Paula Elena MD Refill Request (Dextroamphetamine-amph etamine) 06/25/[address] [place] [address] Paula Elena MD Refill Request 06/19/[address] [place] [address] Paula Elena MD Refill Request (Escitalopram Oxalate) 06/14/[address] [place] [address] Paula Elena MD Refill Request (ARMEN) 06/10/[address] [place] [address] Paula Elena MD Refill Request (Dextroamphetamine-amph etamine) 05/30/[address] [place] [address] Alejandra Sy NP Refill Request (Escitalopram Oxalate) 05/28/[address] [place] [address] Paula Elena MD Refill Request (Dextroamphetamine-amph etamine) [...] Comments Blood Pressure 104/74 11/03/2023 5:03 PM PLASTIC TOP ASSEMBLER Pulse 99 11/03/2023 6:17 PM PLASTIC TOP ASSEMBLER Temperature 36.7 C (98 F) 11/03/2023 5:03 PM PLASTIC TOP ASSEMBLER Respiratory Rate 16 11/03/2023 5:03 PM PLASTIC TOP ASSEMBLER Oxygen Saturation 100% 11/03/2023 6:17 PM PLASTIC TOP ASSEMBLER Inhaled Oxygen Concentration - - Weight 70.3 kg (155 lb) 11/03/2023 5:03 PM PLASTIC TOP ASSEMBLER Height 165.1 cm (5' 5) 11/03/2023 5:03 PM PLASTIC TOP ASSEMBLER Body Mass Index 25.79 11/03/2023 5:03 PM PLASTIC TOP ASSEMBLER Plan of Treatment Upcoming Encounters Date Type Department Care Team (Late st Contact Info) Description 09/06/2024 1:50 PM PLASTIC TOP ASSEMBLER Telemedicine [facility] [address] [place] [address] Alejandra Sy, AMINA [address] [place] [address] Health Maintenance Due Date Last Done Comments [...] 16 Negative Negative 02/23/2024 2:18 PM CDT [facility] TRAL LABORATORY TYPE 18 Negative Negative 02/23/2024 2:18 PM CDT [facility] OTHER HIGH RISK TYPES Negative Negative 02/23/2024 2:18 PM CDT [facility] Other (Cervical) 02/17/2024 4:30 PM CDT 02/21/2024 9:00 AM CDT Narrative [facility] - 02/23/2024 2:18 PM CDT HPV types 16, 18, 31, 33, 35, 39, 45, 51, 52, 56, 58, 59, 66 and 68 DNA were undetectable or below the pre-set threshold. Methodology: Jennifer Yadira 4800 HPV Test Angella King INTERNAL AUDIT SENIOR MANAGER MICROBIOLOGY [facility] [address] [place] [address], from Last 3 Months or Most Recently Relevant to Health Maintenance Care Teams Video System Repairer Relationship Specialty Start Date End Date Paula Elena MD [address] [place] [id number] PCP - General Family Practice 06/21/24
[2024-08-20 13:54] LABS: Hematocrit 33.7 % (33.0-51.0); Hemoglobin* 10.4 gm/dL (12.0-16.0); Mean Corpuscular HGB Conc 31 gm/dL (32-36); Mean Corpuscular Hemoglobin 27 pg (26-34); Mean Corpuscular Volume 87 fL (80-100); Platelet Count* 256 K/uL (140-440); Red Blood Count 3.87 m/uL (4.00-5.20); White Blood Count* 13.92 K/uL (4.50-11.00)
[2024-08-20 13:56] LABS: Slide Review Reflex No
[2024-08-20 14:11] LABS: Alanine Aminotransferase* 11 U/L (4-35); Aspartate Amino Transferase* 21 U/L (12-35); Blood Urea Nitrogen* 10 mg/dL (5-24); Creatinine* 0.5 mg/dL (0.5-1.5); Estimated Glomerular Filt Rate 131 ml/min
[2024-08-20 14:12] LABS: Total Protein Urine 11 mg/dL
[2024-08-20 14:14] LABS: Creatinine Urine 51.8 mg/dL; Protein Creatinine Ratio Urine 0.21 (0-0.19)
--- NOTE | 2024-08-20 16:49 | P.OBLDTN_ITS ---
OB - Triage/Final Diagnosis Visit Information Date Seen: 08/20/24 Date of evaluation: 08/20/24 Narrative: The patient is a 28 year old 1 para 0 at 36 3/7 weeks gestation by LMP, who presents from clinic for serial blood pressure monitoring and labs. She been seen in the [facility] today for routine visit. Her blood pressure was noted to be mildly elevated at 138/92. At the time of her last visit, her initial blood pressure was 138/94. Both measurements were done using an appropriate sized blood pressure cuff. The patient has noticed an increase in swelling in her fingers and hands and some puffiness in her face. Her fetus is active. She denies headaches, visual changes, or right upper quadrant pain. OB Problem list: 1. Anxiety. Well managed on Lexapro 20 mg daily. PHQ 10, LEISA 7. Patient states this is her baseline. 2. ADHD. Taking Adderall x5 years. Referral placed to [facility], patient declined to schedule. * Level one FAS ultrasound scheduled in [place]. Patient counseled that in general, Adderall use in has not been found to increase rate of malformations. * Patient's primary provider is working to gradually decrease her dosage of Adderall. Decreased to 25 mg daily (reported on 04/13/24) 3. Back pain and hip pain * Referral to [facility] in [place], [place] 4. Anemia - hemoglobin 9.7 on 07/30/2024, ferritin 7.8 * IV infusion therapy: 08/07/2024 5.Fundal height large for dates * Growth ultrasound at 35-36 weeks gestation: EFW 93% * Interested in 39wk IOL 6. Gestational HTN dx'd on 08/20 - BP elevated on 08/13, upsized cuff and normalized - BP elevated on 08/20 with appropriately sized cuff > triage - BP elevated during triage monitoring (140s/90s). Recommend IOL @37 weeks. Evaluation Laboratory results: Laboratory Tests 08/20/24 08/20/24 Range/Units 13:43 13:38 WBC 13.92 H (4.50-11.00) K/uL RBC 3.87 L (4.00-5.20) m/uL Hgb 10.4 L (12.0-16.0) gm/dL Hct 33.7 (33.0-51.0) % MCV 87 (80-100) fL MCH 27 (26-34) pg MCHC 31 L (32-36) gm/dL Plt Count 256 (140-440) K/uL BUN 10 (5-24) mg/dL Creatinine 0.5 (0.5-1.5) mg/dL Estimated GFR 131 ml/min AST 21 (12-35) U/L ALT 11 (4-35) U/L Urine Creatinine 51.8 mg/dL Protein/Creatinin Ratio 0.21 H (0-0.19) Urine Total Protein 11 mg/dL Vital signs: Vital Signs - 24 hr 08/20/24 13:34 08/20/24 13:50 08/20/24 14:05 Temperature 98.5 F Pulse Rate 96 96 93 Respiratory Rate 16 Blood Pressure 123/85 146/82 H 138/75 Pulse Oximetry 98 08/20/24 14:20 08/20/24 14:34 08/20/24 14:50 Temperature Pulse Rate 97 98 92 Respiratory Rate Blood Pressure 131/85 137/88 140/84 H Pulse Oximetry 08/20/24 15:05 08/20/24 15:19 08/20/24 15:35 Temperature Pulse Rate 89 91 92 Respiratory Rate Blood Pressure 143/74 H 141/77 H 133/80 Pulse Oximetry 08/20/24 15:49 08/20/24 16:04 08/20/24 16:19 Temperature Pulse Rate 92 83 93 Respiratory Rate Blood Pressure 135/84 132/82 140/86 H Pulse Oximetry Comments: General appearance: Alert, cooperative white female in no acute distress Abdomen: Soft, gravid, nontender Extremities: Trace to 1+ edema of the hands and fingers, trace edema of the lower extremities to the ankles Labs: Platelets 256, hemoglobin 10.4, BUN 10, creatinine 0.5, AST 21, ALT 11, urine P/C 0.21. Fetus (Single) Heart Rate Baseline: 120 Computer Applications Developer Variability: Moderate (6-25) Monitor Accelerations: Present Monitor Decelerations: None Final Diagnosis (1) Gestational hypertension: Status: Acute Problem details: Induction of labor recommended at 37 weeks gestation, with cervical ripening the evening prior, method TBD on admit
--- NOTE | 2024-08-20 17:00 | PC.OBNST ---
NST Note NST Note Start: 08/20/24 13:25 Freq: ONCE Status: Active Protocol: Document 08/20/24 16:40 CUDDYH (Rec: 08/20/24 17:00 CUDDY [id number]) NST Note 1 Para (# of births) 0 EDC 09/14/24 Gestational Age In Weeks & Days 36 Weeks & 3 Days Patient Presented with Complaint(s) of Other Other Complaints blood pressure monitoring Reactive Yes Appropriate for Gestational Age Yes RN Sheila Cusujit Date 08/20/24 Reactive Yes Appropriate for Gestational Age Yes RN Ant Case RN Date 08/20/24 OB NST charge Yes Complete NST Note via Write Note Yes The provider's electronic signature indicates the NST is reactive/appropriate for gestational age. *Note to provider: If an addendum is required, open the patient's chart and click on the note under the Nurse/Allied Health tab.
== END 2024-08-20 16:40 | disposition home or self-care (01) ==
LOC: OB OUT 13:21 → OB 13:44
PROVIDERS: Obstetrics & Gynecology; PCP Family Medicine; Visit Provider Obstetrics & Gynecology
DX: O13.3 Gestational [pregnancy-induced] hypertension without significant proteinuria, third trimester (principal); Z3A.36 36 weeks gestation of pregnancy
CPT/HCPCS: 36415; 59025; 82565; 82570; 84156; 84450; 84460; 84520; 85027; G0463

== ENCOUNTER 2024-08-20 13:24 | Outpatient (CLI) | payer BC, SELFPAY ==
[2024-08-21 22:53] LABS: Strep B DNA Probe Negative (Negative)
[2024-08-21 23:33] LABS: Strep B Susceptibility Needed? No
== END 2024-08-20 13:25 | disposition home or self-care (01) ==
LOC: NFLDREF 13:25
PROVIDERS: PCP Family Medicine; Visit Provider Obstetrics & Gynecology
DX: Z34.93 Encounter for supervision of normal pregnancy, unspecified, third trimester (principal); Z3A.36 36 weeks gestation of pregnancy
CPT/HCPCS: 87081; 87653

== ENCOUNTER 2024-08-23 15:57 | Inpatient (IN) | payer BC, SELFPAY ==
[2024-08-23] VITALS (8 sets, daily range): BP systolic 114–138; BP diastolic 62–89; PULSE 76–114; RESP 16–18; TEMP 36.6–36.7; O2SAT 98; BMI 31.8
--- OUTSIDE RECORDS SUMMARY | 2024-08-23 16:02 | XMS_ITS | Clinical Summary ---
Author Organization [employer] [facility] [employer] [facility] Address [place], [place] [address] Care Team Providers Care Avionics System Engineer Name Role Phone Paula Elena MD Primary [...] mouth once daily. 30 Capsule 4 Active Atdltoit-Oj-Myo-Fe -FA tab tablet Take 1 Tablet by mouth once daily. Active escitalopram oxalate (LEXAPRO) 20 mg tabletIndications: [...] daily. 30 Capsule 4 Active dextroamphetamine- amphetamine (ADDERALL) 10 mg tabletIndications: ADD (attention deficit disorder) without hyperactivity TAKE ONE TABLET BY MOUTH TWICE A DAY AT 7A.M. AND NOON 60 Tablet 4 08/21/20 24 Discontinued(*Me d complete/Regimen complete/Level of care change) dextroamphetamine- amphetamine (AdderalL) 10 mg tabletIndications: ADD [...] Encounters Date Type Department Care Team Description 08/22/[address] [phone] Paula Elena MD 08/20/[address] [phone] Paula Elena MD Refill Request (Dextroamphetamine-amph etamine) 08/15/[address] [address] Paula Elena MD Refill Request (Dextroamphetamine-amph etamine) 08/08/[address] [address] Paula Elena MD Refill Request (Dextroamphetamine-amph etamine) 08/06/[address] [address] Paula Elena MD Refill Request (Dextroamphetamine-amph etamine, Dextroamphetamine-amphe tamine) 07/19/[address] [address] Paula Elena MD Refill Request (Dextroamphetamine-amph etamine) 07/04/[address] [place] [address] aPula Elena MD Refill Request (Dextroamphetamine-amph etamine) 06/25/[address] [place] [address] Paula Elena MD Refill Request 06/19/[address] [place] [address] Paula Elena MD Refill Request (Escitalopram Oxalate) 06/14/[address] [place] [address] Paula Elena MD Refill Request (ARMEN) 06/10/[address] [place] [address] Paula Elena MD Refill Request (Dextroamphetamine-amph etamine) 05/30/[address] [place] [address] Alejandra Sy NP Refill Request (Escitalopram Oxalate) 05/28/[address] [place] [address] Paula Elena MD Refill Request (Dextroamphetamine-amph etamine) [...] Comments Blood Pressure 104/74 11/03/2023 5:03 PM HORSE RACER Pulse 99 11/03/2023 6:17 PM HORSE RACER Temperature 36.7 C (98 F) 11/03/2023 5:03 PM HORSE RACER Respiratory Rate 16 11/03/2023 5:03 PM HORSE RACER Oxygen Saturation 100% 11/03/2023 6:17 PM HORSE RACER Inhaled Oxygen Concentration - - Weight 70.3 kg (155 lb) 11/03/2023 5:03 PM HORSE RACER Height 165.1 cm (5' 5) 11/03/2023 5:03 PM HORSE RACER Body Mass Index 25.79 11/03/2023 5:03 PM HORSE RACER Plan of Treatment Upcoming Encounters Date Type Department Care Team (Late st Contact Info) Description 09/06/2024 1:50 PM HORSE RACER Telemedicine [facility] [address] [place] [address] Alejandra Sy, AMINA [address] [place] [address] Health Maintenance Due Date Last Done Comments [...] 16 Negative Negative 02/23/2024 2:18 PM CDT [facility] TRAL LABORATORY TYPE 18 Negative Negative 02/23/2024 2:18 PM CDT [facility] TRAL LABORATORY OTHER HIGH RISK TYPES Negative Negative 02/23/2024 2:18 PM CDT [facility] Other (Cervical) 02/17/2024 4:30 PM CDT 02/21/2024 9:00 AM CDT Narrative [facility] - 02/23/2024 2:18 PM CDT HPV types 16, 18, 31, 33, 35, 39, 45, 51, 52, 56, 58, 59, 66 and 68 DNA were undetectable or below the pre-set threshold. Methodology: Jennifer Yadira 4800 HPV Test Angella King OIL HOUSE ATTENDANT MICROBIOLOGY [facility] [address] [place] [id number], from Last 3 Months or Most Recently Relevant to Health Maintenance Care Teams Avionics System Engineer Relationship Specialty Start Date End Date Paula Elena MD [address] [place], [place] [address]KAVITA Corral [address] PCP - General Family Practice 06/21/24
--- NOTE | 2024-08-23 16:38 | W.PM.LDBA ---
Subjective History of Present Illness Time Seen by Provider: 17:25 Date Seen: 08/23/24 Narrative: Patient is being admitted to Labor and Delivery for an induction of labor due to gestational hypertension. She is a 28 year old at 36 and 6/7 weeks gestation. She was diagnosed with gestational hypertension on 08/20/2024. Her has been complicated by anemia and she underwent an iron infusion on 08/05/2024. She also has ADHD and has been taking Adderall during her . Preeclampsia labs were drawn on admission today. She is GBS negative and blood type is B positive. I will be checking her cervix to determine cervical ripening method. Verbal consent obtained to place a Cook catheter. The patient's past medical, surgical, family and social histories were reviewed in her electronic medical record. Specific Issues/Plans G 1 P 0 Partner: Congregational. Baby: Boy! 1. Anxiety. Well managed on Lexapro 20 mg daily. PHQ 10, LEISA 7. Patient states this is her baseline. 2. ADHD. Taking Adderall x5 years. Referral placed to [facility], patient declined to schedule. Level one FAS ultrasound scheduled in [place]. Patient counseled that in general, Adderall use in has not been found to increase rate of malformations. Patient's primary provider is working to gradually decrease her dosage of Adderall. Decreased to 25 mg daily (reported on 04/13/24) 3. Back pain and hip pain Referral to [facility] in [place], [place] 4. Anemia - hemoglobin 9.7 on 07/30/2024, ferritin 7.8 IV infusion therapy: 08/07/2024 5.Fundal height large for dates Growth ultrasound at 35-36 weeks gestation: EFW 93% Interested in 39wk IOL 6. Elevated BPs without diagnosis of HTN - BP elevated on 08/13, upsized cuff and normalized - BP elevated on 08/20 with appropriately sized cuff > triage Covid: Not vaccinated. Recommended. Declines. Flu: declines GBS: negative Imagin08/13/24 US for EFW due to size > dates: Vtx. SDP 6.7cm. EFW: 3198gm, 7#1oz, 93%. BPD >97%, HC 93%, AC > 97%, FL 27% OB - Problem Based A/P Additional Plan (1) Gestational hypertension: Problem details: Induction of labor recommended at 37 weeks gestation, with cervical ripening the evening prior, method TBD on admit Status: Acute Plan 1. Admit to the Center for Cervical ripening: Cook catheter placed at 5:25PM with 60mL in both balloons 2. Dr. Cotter will assume care at 7am on 08/24/24 3. GBS negative. 4. Blood type: B+ OB Exam Physical Exam Vital signs: Temp Pulse BP Pulse Ox 98.1 F 112 H 133/84 98 08/23/24 16:17 08/23/24 16:18 08/23/24 16:18 08/23/24 16:16 Narrative: GENERAL APPEARANCE: Pleasant, [race], well-groomed woman in no acute distress. VITAL SIGNS: as noted in nursing notes HEAD: Normocephalic, atraumatic. THYROID: no masses, nodularity, tenderness or enlargement. LUNGS: Clear to auscultation bilaterally without wheezes, rales or rhonchi. HEART: Regular rate and rhythm with normal S1 and S2. No gallop, rub or murmur. ABDOMEN: Gravid. Soft, nontender, nondistended, with normal bowels sounds throughout. EFM: Baseline: 130-140bpm, moderate variability, accelerations: present, decelerations: absent. Reactive. Category 1. TOCO: Q10-12 minutes. PRESENTATION: Vertex by Alfredo's maneuvers. SVE: 1.5 cm/ 60 %/ -2/soft/mid. Gonzalez score: 6. Cook catheter placed. 60mL of saline in both balloons. EXTREMITIES: No cyanosis, clubbing, or edema. No varicosities. NEUROLOGIC: Normal gait and balance. Normal deep tendon reflexes at bilateral patella 2+/2, equal without clonus. PSYCHIATRIC: alert and oriented x3. Normal speech pattern, eye contact and affect. SKIN: Warm, dry, and well perfused. Good turgor. No lesions, nodules or rashes.
[2024-08-23 19:29] LABS: Basophils Percent Auto 0.4 % (0.0-3.0); Eosinophils Percent Auto 0.4 % (0.0-7.0); Hematocrit 32.8 % (33.0-51.0); Hemoglobin* 10.4 gm/dL (12.0-16.0); Immature Granulocytes Pct Auto 0.4 %; Lymphocytes Percent Auto 22.9 % (20-44); Mean Corpuscular HGB Conc 32 gm/dL (32-36); Mean Corpuscular Hemoglobin 28 pg (26-34); Mean Corpuscular Volume 87 fL (80-100); Monocytes Percent Auto 6.9 % (0.0-11.0); Platelet Count* 248 K/uL (140-440); RDW Coefficient of Variation % 19.1 % (11.5-15.5); Red Blood Count 3.78 m/uL (4.00-5.20); White Blood Count* 12.05 K/uL (4.50-11.00)
[2024-08-23 19:35] LABS: Slide Review Reflex No
[2024-08-23] MEDS: LACTATED RINGERS 1000 ML 1,000 ML 30 ML IV (21:02)
[2024-08-23] MEDS: OXYTOCIN 30 unit/500 ML in NS 30 UNIT/500 ML BAG IVPB (21:02)
[2024-08-23] MEDS: MORPHINE 10 MG/ML inj IM (21:03)
[2024-08-23] MEDS: hydrOXYzine pamoate 25 MG CAPSULE 100 MG PO (21:04)
[2024-08-24] VITALS (60 sets, daily range): BP systolic 93–158; BP diastolic 54–99; PULSE 63–133; RESP 18; TEMP 36.6–37.2; O2SAT 97–98
--- NOTE | 2024-08-24 08:51 | P.OBPN_ITS ---
Subjective Time Seen by Provider: 09:30 Date Seen: 08/24/24 Narrative: Tisha is a 28-year-old woman at 37 weeks, 0 days gestation here for induction of labor for indication of gestational hypertension. She had Cook catheter placed last night for cervical ripening, and has had Pitocin as well. She has had occasional, mildly elevated blood pressures since admission. Labs at admission were notable for hemoglobin of 10.4, BUN 10, creatinine 0.5, and normal transaminases. tracing for last 30 minutes: Baseline 120, accelerations present, no decelerations, moderate variability. Apparent uterine irritability on the monitor, with very frequent small amplitude contractions. Oxytocin is currently at 14 milliunits a minute. Objective Exam: Gen - NAD Abd - Soft, NT, gravid Cervix - 4.5 / 80 / -2 / deviated to patient's left. SROM on exam with clear fluid. Vital Signs: Last Vital Signs Temp 97.9 F 08/24/24 08:25 Pulse 100 08/24/24 08:39 Resp 18 08/24/24 06:36 BP 134/84 08/24/24 08:39 Pulse Ox 98 08/23/24 16:16 Assessment Assessment: early labor Amniotic Membrane Status: SROM Status: Category l Heart Rate Baseline: 150 Correction Variability: Moderate (6-25) Monitor Accelerations: Present Monitor Decelerations: None Tracing Comments: Category I Labor Progress: Favorable cervix after Cook Catheter Maternal Status: Gestational HTN. Normal HELLP labs and stable BPs. Plan Plan: Continue pitocin augmentation. Epidural as desired. Continuous monitoring.
[2024-08-24] MEDS: ROPIVACAINE 0.2% 100 ml 100 ML 12 MG EPIDURAL (11:30)
[2024-08-24] MEDS: BUPIVACAINE 0.25% PF 10 ML 10 ML ML EPIDURAL (11:30)
--- NOTE | 2024-08-24 11:38 | PM.ANBPRC ---
PFSH PFSH Surgical History [place] teeth extracted ?K08.409 - Partial loss of teeth, unspecified cause, unspecified class (ICD-10) Social History What is your current living situation?: I presently have a place to live Problems where you live: no known problems In the past 12 months, utilities in danger of being shut off: no In the past 12 mos, have been you worried that your food would run out before you had money to buy more?: never true In the past 12 mos, the food you bought just didn't last and you didn't have money to buy more?: never true Smoking Status: Never smoker How often does anyone, including family, friends and others, physically hurt you: never How often does anyone, including family, friends and others, insult or talk down to you: never How often does anyone, including family, friends and others, threaten you with harm: never How often does anyone, including family, friends and others, scream or curse at you: never Meds Home Medications and Allergies Home Medications ?Medication ?Instructions ?Recorded ?Confirmed ?Type dextroamphetamine-amphetamine ER 1 cap PO DAILY 02/17/24 08/23/24 History 30 mg 24hr capsule,extend release docosahexaenoic acid 200 mg 200 mg PO DAILY PRN 02/17/24 08/23/24 History capsule ( DHA) escitalopram oxalate 20 mg tablet 20 mg PO QAM 02/17/24 08/23/24 History magnesium glycinate 100 mg (as 100 mg PO QDAY 02/17/24 08/23/24 History glycinate) tablet Allergies Allergy/AdvReac Type Severity Reaction Status Date / Time No Known Drug Allergies Allergy Verified 08/20/24 08:44 Results Labs Labs: Laboratory Results - last 24 hr 08/23/24 19:24 WBC 12.05 H RBC 3.78 L Hgb 10.4 L Hct 32.8 L MCV 87 MCH 28 MCHC 32 RDW Coeff of Anamaria 19.1 H Plt Count 248 Neut % (Auto) 69.0 Lymph % (Auto) 22.9 [place] % (Auto) 6.9 Eos % (Auto) 0.4 Baso % (Auto) 0.4 Neut # (Auto) 8.30 H Lymph # (Auto) 2.80 [place] # (Auto) 0.80 Eos # (Auto) 0.00 Baso # (Auto) 0.00 Abs Immat Gran (auto) 0.00 Imm/Tot Granulo (auto) 0.4 Blood Type B Positive Antibody Screen NEGATIVE Vital Signs Vital Signs: Last Vital Signs Temp 98.2 F 08/24/24 09:39 Pulse 98 08/24/24 11:36 Resp 18 08/24/24 06:36 BP 126/76 08/24/24 11:36 Pulse Ox 98 08/23/24 16:16 Weight: 89.358 kg Height: 167.64 cm Anesthesia Procedures Epidural Insertion Patient Location: OB Start Time: 10:50 Stop Time: 11:40 Start Date: 08/24/24 Stop Date: 08/24/24 Reason for Block: procedure for pain Patient Position: sitting Performed By: Bharat Lobo Preanesthetic Checklist: IV checked, risks and benefits discussed, surgical consent, monitors and equipment checked, pre-op evaluation, timeout performed and anesthesia consent Prep: chlorhexidine gluconate Monitoring: blood pressure monitoring, continuous pulse oximetry and heart rate Approach: midline Vertebral Space: lumbar (1-5) Epidural Technique: MARISOL saline Needle Type: Tuohy needle Injection Technique: continuous catheter Needle gauge: 17 Needle Length (cm): 10 cm Needle Insertion Depth (cm): 7 Catheter Gauge: 19 Catheter Type: multi-orifice Catheter at skin depth (cm): 13 Test Dose Result: negative and lidocaine 1.5% with epinephrine 1 to 200,000
[2024-08-24] MEDS: LACTATED RINGERS 1000 ML 1,000 ML 30 ML IV (12:02)
[2024-08-24] MEDS: PHENYLEPHRINE 100 MCG/ML SYRINGE IVP (14:37)
[2024-08-24] MEDS: CALCIUM CARBONATE 500 MG CHEW PO (15:45)
--- NOTE | 2024-08-24 18:44 | W.PM.VAGD1_ITS ---
Procedure Delivery date: 08/24/24 Procedure Done: Global Procedure Details: The patient is a 28 year-old admitted on 08/23/2024 at 36 Weeks, 6 Days gestation for cervical ripening.? Cervical exam on admission was 1.5 cm/ 60 %/ - 2/soft/mid position with membranes intact in vertex presentation.? heart rate demonstrated baseline 135 bpm with moderate variability, positive accelerations, no decelerations; a category 1 tracing.? She had Cook catheter placed for cervical ripening overnight on her 1st hospital night. She had Pitocin for augmentation of labor thereafter, on 08/24/2024, at 37 weeks and 0 days gestation. SROM occurred at 9:27 a.m. on 08/24/2024 at time of cervical exam with blood tinged fluid. ? Labor Analgesia:? Epidural ? Pitocin:? Yes Complete:? 3:10 p.m. ? Pushing:? 3:15 p.m. ? heart tones during second stage were notable for intermittent variable decelerations with contractions, and bradycardia just before delivery of the infant. There was discontinuous tracing at this time as well. ? At 4:34 p.m. a viable male infant delivered in vertex OA presentation over intact perineum via spontaneous vaginal delivery.? was placed on maternal abdomen.? Cord was clamped and cut after approximately 30 seconds. Nose and mouth were bulb suctioned.? Infant weight 8 lb, 0 oz, LGA.? 2 at 1 minute, 1 at 5 minutes, and 5 at 10 minutes.? Shoulder dystocia: No.? Nuchal cord: No. did receive positive pressure ventilation followed by CPAP. ? Placenta delivered spontaneously and complete at 4:48 p.m. with a 3 vessel cord. ? Mother was stable after delivery. ? Lacerations:? None ? Blood loss: 550 mL. Blood loss measurement type: QBL ? Sponge and needles counts are correct.
[2024-08-25 01:18] VITALS: BP 138/79; PULSE 78; RESP 16; TEMP 37
[2024-08-25 05:04] VITALS: BP 118/82; PULSE 78; RESP 16; TEMP 36.8
[2024-08-25 07:11] LABS: Basophils Percent Auto 0.3 % (0.0-3.0); Eosinophils Percent Auto 0.3 % (0.0-7.0); Hematocrit 30.3 % (33.0-51.0); Hemoglobin* 9.5 gm/dL (12.0-16.0); Immature Granulocytes Pct Auto 0.4 %; Lymphocytes Percent Auto 16.5 % (20-44); Mean Corpuscular HGB Conc 31 gm/dL (32-36); Mean Corpuscular Hemoglobin 27 pg (26-34); Mean Corpuscular Volume 87 fL (80-100); Monocytes Percent Auto 7.4 % (0.0-11.0); Neutrophils Percent Auto 75.1 % (42.0-72.0); Platelet Count* 271 K/uL (140-440); RDW Coefficient of Variation % 19.4 % (11.5-15.5); Red Blood Count 3.47 m/uL (4.00-5.20); White Blood Count* 17.73 K/uL (4.50-11.00)
[2024-08-25 07:20] LABS: Slide Review Reflex No
[2024-08-25 07:31] LABS: Alanine Aminotransferase* 11 U/L (4-35); Aspartate Amino Transferase* 27 U/L (12-35); Creatinine* 0.6 mg/dL (0.5-1.5); Est. Creatinine Clearance* 130.68; Estimated Glomerular Filt Rate 125 ml/min
[2024-08-25 08:30] VITALS: BP 135/87; PULSE 89; RESP 18; TEMP 36.8; O2SAT 98
--- NOTE | 2024-08-25 09:35 | P.OBPN_ITS ---
OB - PN:Subj Subjective Time Seen by Provider: 09:00 Date Seen: 08/25/24 Patient comments OB post-: pain well controlled, tolerating diet and flatus present status: other Narrative: Tisha is a 28 y.o. who was admitted to [facility] for IOL due to GHTN. ?She had an uncomplicated NVD.?The patient feels well. ?The pain is well controlled with current medications. ?She has no new complaints. ?She is expressing colostrum, had to be transferred to NICU and currently on CPAP, doing well. ? the patient has done well.? Vitals have been stable.? She has remained afebrile.? Has a good appetite, is tolerating a general diet. ?She is voiding without difficulty.? She is passing gas and has not had a bowel movement.? She is ambulating and denies any dizziness.? Has Small amount of rubra lochia. ?HELLP labs this morning normal. Hemoglobin did drop to 9.5mg/dL. Today blood pressures mild elevated but not even to consider starting meds yet. OB - PN: Obj Exam Physical Exam: Vital signs: Temp Pulse Resp BP Pulse Ox O2 Del Method 98.2 F 89 18 135/87 98 Room Air 08/25/24 08:30 08/25/24 08:30 08/25/24 08:30 08/25/24 08:30 08/25/24 08:30 08/25/24 08:30 Narrative: GENERAL APPEARANCE:? normal affect, alert, no distress MOOD:? appropriate CHEST:? clear to auscultation HEART:? regular rate and rhythm ABDOMEN:? soft, non-tender the uterine fundus is At Umbilicus, Midline and is appropriate for the stage of recovery. PERINEUM:? mild edema of the perineum EXTREMITIES:? normal and +1 pitting edema bilaterally up to ankles. OB - PN: Obj Data Labs Labs: Laboratory Results - last 24 hr 08/25/24 06:49 WBC 17.73 H RBC 3.47 L Hgb 9.5 L Hct 30.3 L MCV 87 MCH 27 MCHC 31 L RDW Coeff of [place] 19.4 H Plt Count 271 Neut % (Auto) 75.1 H Lymph % (Auto) 16.5 L [place] % (Auto) 7.4 Eos % (Auto) 0.3 Baso % (Auto) 0.3 Neut # (Auto) 13.30 H Lymph # (Auto) 2.90 [place] # (Auto) 1.30 H Eos # (Auto) 0.10 Baso # (Auto) 0.10 Abs Immat Gran (auto) 0.10 Imm/Tot Granulo (auto) 0.4 Creatinine 0.6 Estimated Creat Clear 130.68 Estimated GFR 125 AST 27 ALT 11 OB - PN: A/P Delivery Assessment and Plan (1) Gestational hypertension: Problem details: Induction of labor recommended at 37 weeks gestation, with cervical ripening the evening prior, method TBD on admit Status: Acute Plan day: 1 Plan: routine care Comments: Patient would like to be discharged [facility]. Discussed that my recommendation would be to at least stay until 24 hrs PP, to continue to monitor BPs. Discussed that if she decides to go home prior to that time, I would need AMA paperwork signed. Will re evaluate status in the afternoon.
--- NOTE | 2024-08-25 11:07 | PM.ANPOST ---
Post Anesthesia Note Post Anesthesia Note Patient seen: Inpatient Respiratory Status: adequate Cardiovascular Status: adequate Mental Status: baseline Pain: adequate Temp: baseline Anesthetic awareness: N/A Complications: none Follow care: none
[2024-08-25 12:35] VITALS: BP 130/82; PULSE 95; RESP 18; O2SAT 98
--- NOTE | 2024-08-25 16:07 | PM.OBDSVD1 ---
DS: Providers Provider Time Seen by Provider: 16:07 Date Seen: 08/25/24 Date of admission: 08/23/24 15:57 Primary care physician: Paula Gamino MD Admitting Clinician: Anne Marie Johnson MD Attending Physician on discharge: Real Baker MD Date of Discharge: 08/25/24 DS: Diagnosis Discharge Diagnosis (1) Anemia, : Status: Acute (2) Status post vaginal delivery: Status: Acute (3) Gestational hypertension: Status: Acute Problem details: Induction of labor recommended at 37 weeks gestation, with cervical ripening the evening prior, method TBD on admit Exam Narrative: Exam Narrative: VITAL SIGNS: As noted above. GENERAL APPEARANCE: Alert, cooperative female in no acute distress. MOOD & AFFECT: Normal. HEART: Regular rate and rhythm without murmurs. LUNGS: Lungs are clear to auscultation bilaterally. No crackles, wheezes, or rhonchi. ABDOMEN: Soft, non-distended and nontender. Uterus well contracted at umbilicus. : Normal lochia. EXTREMITIES: Bilateral pitting edema +1 up to ankles. Well perfused. Nontender. NEURO: Intact. Const: Vital Signs, click to edit/add: Vital Signs - 24 hr 08/24/24 16:08 08/24/24 16:48 08/24/24 16:48 Temperature Pulse Rate 126 H 106 H Pulse Rate [Pulse Oximeter] Respiratory Rate 18 Blood Pressure 122/58 L 139/80 Blood Pressure [Le ft Arm] Pulse Oximetry Oxygen Delivery Me thod 08/24/24 16:52 08/24/24 17:07 08/24/24 17:07 Temperature 98.6 F Pulse Rate 112 H 121 H Pulse Rate [Pulse Oximeter] Respiratory Rate 18 Blood Pressure 141/88 H 158/96 H Blood Pressure [Le ft Arm] Pulse Oximetry 97 Oxygen Delivery Me thod 08/24/24 17:22 08/24/24 17:22 08/24/24 17:37 Temperature 97.8 F Pulse Rate 97 98 Pulse Rate [Pulse Oximeter] Respiratory Rate 18 Blood Pressure 145/85 H 154/84 H Blood Pressure [Le ft Arm] Pulse Oximetry Oxygen Delivery Me thod 08/24/24 17:37 08/24/24 17:52 08/24/24 17:53 Temperature 98.2 F Pulse Rate 94 Pulse Rate [Pulse Oximeter] Respiratory Rate 18 18 Blood Pressure 142/80 H Blood Pressure [Le ft Arm] Pulse Oximetry Oxygen Delivery Me thod 08/24/24 18:09 08/24/24 18:09 08/24/24 18:37 Temperature 98.0 F Pulse Rate 133 H 109 H Pulse Rate [Pulse Oximeter] Respiratory Rate 18 Blood Pressure 142/94 H 141/86 H Blood Pressure [Le ft Arm] Pulse Oximetry Oxygen Delivery Me thod 08/24/24 18:37 08/24/24 18:52 08/24/24 18:52 Temperature 98.6 F Pulse Rate 116 H Pulse Rate [Pulse Oximeter] Respiratory Rate 18 18 Blood Pressure 148/95 H Blood Pressure [Le ft Arm] Pulse Oximetry Oxygen Delivery Me thod 08/24/24 21:13 08/25/24 01:18 08/25/24 05:04 Temperature 99.0 F 98.6 F 98.2 F Pulse Rate Pulse Rate [Pulse Oximeter] 78 78 Respiratory Rate 18 16 16 Blood Pressure Blood Pressure [Le ft Arm] 128/78 138/79 118/82 Pulse Oximetry 98 Oxygen Delivery Me thod Room Air 08/25/24 08:30 08/25/24 12:35 Temperature 98.2 F Pulse Rate Pulse Rate [Pulse Oximeter] 89 95 Respiratory Rate 18 18 Blood Pressure Blood Pressure [Le ft Arm] 135/87 130/82 Pulse Oximetry 98 98 Oxygen Delivery Me thod Room Air Room Air OB - DS: Summary Hospital Course Hospital Course: The patient is a 28 year old G 1 P 1 at 37 0/7 weeks gestation that was admitted to the Center on 08/23/24 for of labor in the setting of gestational hypertension. She had an uncomplicated vaginal delivery. She delivered a viable male infant. She is expressing colostrum. Baby transferred to NICU yesterday and would like to be discharged at after 24 hours to reunite with her . the patient has done well. Blood pressures have remained mildly elevated but not even at the range were we would start antihypertensive medication. 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 Peripartum Data Infant delivery method: Vaginal Laceration description: None complications: none [place] Gender: Male Status at Discharge Functional status at discharge: independent ambulation Overall status at discharge: patient is progressing back to baseline Time Spent with Patient Time attestation: Total time spent providing and/or coordinating discharge services: Time spent: Less than 30 minutes Discharge Plan Discharge Disposition: Home, Self-Care Date of Admission: 08/23/24 15:57 Attending Provider on Discharge: Chichi Baker Consulting Providers: Rebecca Cotter Primary Care Provider: Paula Elena Condition: Stable Anticipated Discharge Date/Time: 08/25/24 16:30 Discharge Medications: New acetaminophen 500 mg Tablet 1,000 mg PO Q6H PRNQty: 30 0RF ibuprofen 600 mg Tablet 600 mg PO Q6H PRNQty: 30 0RF Continued omeprazole 40 mg capsule,delayed release(DR/EC) 40 mg PO QDAY Qty: 90 1RF escitalopram oxalate 20 mg tablet 20 mg PO QAM dextroamphetamine-amphetamine 30 mg capsule,extended release 24hr 1 cap PO DAILY DHA 200 mg capsule 200 mg PO DAILY PRN magnesium glycinate 100 mg tablet 100 mg PO QDAY Discharge Orders: Discharge Order (Routine); Ordered 08/25/24 Ordered By: Chichi Baker Patient Education: OB Vaginal/Breast Feeding Additional Instructions: Measure blood pressures at home twice a day. Notify clinic if there are blood pressures persistently more than 140 systolics, 90s diastolics or if any symptoms such as headaches that do not go away with pain medication, visual changes such as dark spots in vision, pain in the upper abdomen-that moves towards the upper right side. Follow-up in clinic in 3-5 days after discharge for blood pressure check. Follow-up in clinic in 2 weeks for mood follow-up. Follow-up in 6 weeks in clinic for regular visit. Activity Level: Activity as Tolerated Activity Detail: Nothing vaginally for 6 weeks. Discharge Diet: Regular Follow Up Appointments: Paula Elena MD [Primary Care Provider] - Forms: My COI Info Instructions
[2024-08-25 16:40] VITALS: BP 126/85; PULSE 94; RESP 16
== END 2024-08-25 17:00 | disposition home or self-care (01) | DRG 560 ==
PROVIDERS: Obstetrics & Gynecology; Admitting Provider Obstetrics & Gynecology; PCP Family Medicine; Visit Provider Obstetrics & Gynecology
DX: O13.4 Gestational [pregnancy-induced] hypertension without significant proteinuria, complicating childbirth (principal); Z3A.36 36 weeks gestation of pregnancy; O36.63X0 Maternal care for excessive fetal growth, third trimester, not applicable or unspecified; O99.02 Anemia complicating childbirth; D64.9 Anemia, unspecified; O99.344 Other mental disorders complicating childbirth; F41.9 Anxiety disorder, unspecified; F90.9 Attention-deficit hyperactivity disorder, unspecified type; Z79.899 Other long term (current) drug therapy; Z37.0 Single live birth
CPT/HCPCS: 01967; 36415; 59200; 82565; 84450; 84460; 84520; 85025; 86592; 86850; 86900; 86901; 88307; A9270; C1726; J0665; J2270; J2371; J2795; J7120